=== PATIENT | male | born 1965 | race Caucasian/White ===

== ENCOUNTER 2017-05-20 09:08 | Emergency (ER) | payer OTHER, SELFPAY ==
[2017-05-20 09:10] VITALS: BP 159/90; PULSE 60; RESP 16; TEMP 36.6; O2SAT 96; BMI 25.9
--- NOTE | 2017-05-20 09:11 | CT_ITS ---
STUDY: CT ABDOMEN AND PELVIS WITHOUT CONTRAST REASON FOR EXAM: Male, 51 years old. Bilateral flank pain starting this morning with radiation into the groin. RADIATION DOSAGE (If Supplied By Facility): CTDIvol = ( 7.93 ) mGy, DLP = ( 434.14 ) mGycm TECHNIQUE: Transaxial images were obtained from the dome of the diaphragm to the symphysis pubis without oral contrast, and without intravenous contrast. Sagittal and coronal images were reconstructed. Individualized dose optimization techniques were used for this CT. COMPARISON: Prior comparison studies are not available for review at this time. FINDINGS: There is bilateral basilar dependent atelectasis. The lung bases are otherwise clear. The visualized portions of the heart are within normal limits. There are coronary artery vascular calcifications. There are small lucencies within the liver, with the largest in the posterior segment measuring 9.4 mm in greatest dimension. There is non-visualization of the gallbladder, which may be secondary to either contraction or a prior cholecystectomy. Normal spleen. Normal pancreas. Normal bilateral adrenal glands. Normal right kidney. There is mild left-sided hydronephrosis and hydroureter. There is fluid within the retroperitoneum coursing anterior to left psoas muscle and into the pelvis. This may be the result of pyelosinus extravasation of urine. There is a ureteral calculus at the ureterovesical junction measuring approximately 3 mm in greatest dimension. There is a small hiatal hernia. There is no evidence for dilated bowel, ascites or pneumoperitoneum. Small bowel has a grossly normal appearance. There are multiple colonic diverticula consistent with diverticulosis. There is non-visualization of the appendix. There is mild atherosclerotic calcification of the abdominal aorta with elongation and tortuosity, but without a demonstrated aneurysm. There is venous distention of the inferior vena cava (IVC). Normal retroperitoneum. Normal urinary bladder. Normal visualized prostate gland. Normal abdominal wall. There is degenerative disc disease at L4-5 with disc space narrowing and vacuum disc phenomenon. CT/Abdomen/Pelvis without Cont IMPRESSION: 1. Mild left-sided hydronephrosis. There is left-sided retroperitoneal and periureteral fluid likely related to pyelosinus extravasation of urine. 2. Distal left ureteral calculus at the ureterovesical junction. 3. Small lucencies within the liver may represent small cysts. 4. Mild colonic diverticulosis. Electronically Signed: Pippa Lanza MD at 10:43 EST , Service support ,
[2017-05-20] MEDS: 0.9% Normal Saline 1,000 ML 250 ML IV (09:20)
[2017-05-20] MEDS: Ondansetron 4 MG/2 ML Vial IV (09:26)
[2017-05-20 09:40] LABS: Absolute Lymphocyte Count 1.45 X10^3/ul (0.83-4.51); Absolute Neutrophil Count 10.4 X10^3/uL (2.0-7.7); Basophil# 0.07 X10^3/uL; Basophil% 0.5 % (0-1); Eosinophil# 0.13 X10^3/uL; Hematocrit 41.5 % (40-54); Hemoglobin 14.8 g/dl (13.0-16.5); Lymphocyte # 1.45 X10^3/ul (4.0); Lymphocyte % 11.3 % (19-41); Mean Corp Hgb Conc 35.7 g/gl (32-36); Mean Corpuscular Hgb 31.7 pg (27.0-32.0); Mean Corpuscular Volume 88.9 fL (80-94); Monocyte% 6.2 % (0-10); Neutrophil # 10.38 X10^3/uL (2.7-7.7); Neutrophil % 80.7 % (47-70); Platelet Count 279 K/mm3 (150-450); RBC Distribution Width CV 13.2 % (11.6-14.6); RBC Distribution Width SD 42.9 fl (35.1-43.9); Red Blood Count 4.67 M/mm3 (4.6-6.2); White Blood Count 12.9 K/mm3 (4.4-11.0)
[2017-05-20 09:42] LABS: POSITIVE COUNT NO; POSITIVE DIFFERENTIAL NO; POSITIVE MORPHOLOGY NO
[2017-05-20 09:55] LABS: Anion Gap 9 (5-15); BUN 17 mg/dL (7-18); BUN/Creat Ratio 14.2 RATIO (10-20); Chloride 108 mmol/L (98-107); EST Glomerular Filtration Rate 67 mL/min (>60); Est Glom Filt Rate - Afr Amer 81 mL/min (>60); Estimated Creatinine Clearance 73.51 ml/min; Glucose 115 mg/dL (74-106); Potassium 3.3 mmol/L (3.5-5.1); Sodium Level 142 mmol/L (136-145)
--- NOTE | 2017-05-20 10:05 | ED.DCSUM_ITS ---
- ER Visit Summary Date of Service: 05/20/17 Chief Complaint: [] Left flank pain this morning History of Present Illness: The patient is a 51 M [] woke this morning with pain to the left back and left flank he thought it would go away he walked his dogs that he be having more pain and vomiting the pain localized left lower abdomen came in for evaluation he did vomit once he feels urge to urinate but has very little urine output. He has no past history except hypertension and high cholesterol that are stable he has no trauma no fever no cough review systems are negative Physical Examination: [] He is in no distress complaint of pain to the left flank head neck chest unremarkable the abdomen there is pain to the left flank is a very vague pain to the left lower abdomen there is no rebound guarding or megaly the exam to inspection is unremarkable upper lower extremities unremarkable pulses are symmetric is moving all 4 extremities he had no midline lumbar T spine pain Test Results: [] Emergency Department Course and Treatment: [] Labs UA pain management CT Since labs are generally unremarkable UA shows hematuria, the CT flank shows a 3 mm left UVJ stone there is hydroureter hydronephrosis and there is pseudo- urine collection behind the kidney see that report Valuation the patient's resting cupping the bed his symptoms are completely resolved he has no pain of any kind of explained test results to him I have explained the concept of the pseudo-urinary sac behind the kidney need to follow -up with urology he will be discharged on [place] Naprosyn Flomax and follow-up with in the next few days and return for change in symptoms Treatment Plan: [] Disposition: [] Home stable Impression: [] Flank pain related to obstructing left kidney stone This note was generated with [employer] dictation software. It may contain incorrect words, spelling, and punctuation that were not noted in review of the chart prior to signing ED Disposition - Plan for ED Patient: Chief Complaint: Flank Pain Referrals: Liang Morris III, MD [Primary Care Provider] -
[2017-05-20 10:15] LABS: Bacteria 0 SEEN /hpf (None Seen); Mucous, Urine 0 SEEN /hpf (<or=2+); Squamous Epithelial Cells - UA 0 SEEN /hpf (0-5); White Blood Cells 0 SEEN /hpf (0-5)
[2017-05-20 10:16] LABS: Color, Urine Yellow (Yellow); Glucose, Dipstick Normal (Normal); Ketone-Dipstick 15 mg/dl (Negative); Leukocyte Esterase-Dipstick Negative /ul (Negative); Nitrite-Dipstick Negative (Negative); Occult Blood-Urine 150 /ul (Negative); Protein-Dipstick Negative (Negative); Specific Gravity, Urine 1.015 (1.002-1.030); Urine Bilirubin Dipstick Negative (Negative); Urine Clarity Clear (Clear); Urine Urobilinogen Normal (Normal)
[2017-05-20 10:26] LABS: Red Blood Cells-Urine 10-25 SEEN /hpf (0-5)
[2017-05-20] MEDS: Tamsulosin HCl 0.4 MG Capsule PO (11:46)
[2017-05-20] MEDS: Ketorolac 30 MG/ML Syringe IV (11:46)
[2017-05-20 11:49] VITALS: BP 131/88; PULSE 62; RESP 18; O2SAT 96
--- NOTE | 2017-05-20 11:52 | ED.DEP ---
ED Disposition - Plan for ED Patient: Chief Complaint: Flank Pain Instructions: ED Stone Renal W Colic Prescriptions: Hydrocodone Bitart/Apap 5-325 [[place] 5/325] 1 - 2 tab PO Q4H PRN PRN #12 tab PRN Reason: Pain Naproxen [Naprosyn] 500 mg PO BID PRN #20 tab Tamsulosin HCl [Flomax] 0.4 mg PO DAILY 7 Days #7 cap Referrals: Liang Morris III, MD [Primary Care Provider] - Eric Espinoza MD [STAFF PHYSICIAN] -
--- NOTE | 2017-05-20 11:55 | DCINST.ED_ITS ---
ED Disposition - Plan for ED Patient: Chief Complaint: Flank Pain Instructions: ED Stone Renal W Colic Prescriptions: Hydrocodone Bitart/Apap 5-325 [[place] 5/325] 1 - 2 tab PO Q4H PRN PRN #12 tab PRN Reason: Pain Naproxen [Naprosyn] 500 mg PO BID PRN #20 tab Tamsulosin HCl [Flomax] 0.4 mg PO DAILY 7 Days #7 cap Referrals: Liang Morris III, MD [Primary Care Provider] - Erci Espinoza MD [STAFF PHYSICIAN] -
[2017-05-20 12:13] VITALS: BP 133/86; PULSE 66; RESP 16; O2SAT 95
== END 2017-05-20 12:14 | disposition home or self-care (01) ==
PROVIDERS: Emergency Provider Emergency Medicine; Family Provider Family Medicine; PCP Family Medicine
DX: N13.2 Hydronephrosis with renal and ureteral calculous obstruction (principal); R31.9 Hematuria, unspecified; I10 Essential (primary) hypertension; E78.00 Pure hypercholesterolemia, unspecified; Z79.899 Other long term (current) drug therapy
CPT/HCPCS: 74176; 80048; 81001; 85025; 96361; 96374; 96375; 99285; A4216; J2405